=== PATIENT | male | born 1975 | race Caucasian/White ===

== ENCOUNTER 2025-02-04 23:01 | Emergency (ER) | payer OTHER, SELFPAY ==
[2025-02-04 23:05] VITALS: BP 134/81
--- NOTE | 2025-02-04 23:56 | ED.GENMED ---
History of Present Illness
General
Chief Complaint: Musculo-Skeletal Complaint
Source: patient
Exam Limitations: none
Time Seen by Provider: 02/04/25 23:31
Nursing documentation reviewed up to this point in time: agreed with
History of Present Illness
History of Present Illness:
pt is a 49 y/o M R hand dominant
here ith R hand pain (thumb) from injury 4 weeks ago
he says he wrapped a trash bag handle/string aruond the base of the thumb and lifted the bag up and felt pain in the thumb
thought it was healing but then a few days ago tweaked it and was having more pain again and he wants to get it checked out
some swelling present at the base of the R thumb
ntohing tkane for pain
denies chronic medical problems, substance abuse history noted int he chart
no wrist pain
no numbness
Past History
Past History
ED Past Medical History: None
ED Past Surgical History: None
Social History
Tobacco: Smoker
Alcohol: Daily
Drug: Other (meth)
Personal: Single
Living: with roommate
Review of Systems
Review of Systems
Allergies reviewed?: Yes
All Other Systems: Not applicable
Phy Exam
Physical Exam
Physical Exam:
GENERAL: Alert , in no apparent distress, comfortable at rest
HEAD: NCAT
CV: 2+ radial pulse
cap refill thumb intact
NEUROLOGICAL: Alert and oriented, no focal neuro deficits, , 5/5 strength, sensation intact, ambulation slight limp right leg
SKIN: Warm and dry, no bruising, no redness
MUSCULOSKELETAL: mild swelling base of the 1st metacarpal
tender to metacarpal/carpal joint
able to range the thumb
no wrist tenderness otherwise
no deformity
PSYCH: Normal and appropriate interaction.
Course
Orders/Labs/Results
Orders:
Orders
02/04/25 23:10
Finger(s)/Thumb 2 View Rt [CR Finger(s)/thumb Min 2 Vw Rt] Urgent
Comment:
Reason For Exam: pain in thumb
Indicate Which Finger:: Thumb
02/05/25 00:03
Ibuprofen [Motrin] 600 mg PO NOW STA
Vital Signs
Initial and Last Documented VS:
Initial Vital Signs
Temp Pulse Resp BP Pulse Ox
36.9 C 62 16 134/81 98
02/04/25 23:05 02/04/25 23:05 02/04/25 23:05 02/04/25 23:05 02/04/25 23:05
Last Documented Vital Signs
Temp Pulse Resp BP Pulse Ox
36.9 C 60 20 108/68 98
02/04/25 23:05 02/05/25 00:11 02/05/25 00:11 02/05/25 00:11 02/05/25 00:11
MDM/Problems Addressed
Differential Diagnosis Includes:
thumb/hand fracture, contusion
MDM/Problems Addressed:
49 y/o M
here with R thumb/hand pain x 4 weeks after saying he twisted it while he had a wrapped trashbag handle wrapped around it several times
he has had pain and swelling which he thought was getting better until yesterday
now worse again after moving it a certain way
on exam pt has tenderenss base of the 1st metacarpal
no deformity
thumb itself nontender
xray indepr eviewed noted a fx at the base of the 1st metacarpal
splinted with thumb spica
f/u ortho recommended
*Critical Care Note
Total Time (30-74mins, 75-104mins- exclusive of procedures): Not Applicable
ED Attending Note
-
Portions of this chart may have been created with voice recognition software.� Occasional wrong word or��sound alike� substitutions may have occurred due to the inherent limitations of voice recognition software.
Discharge Plan
Departure
Patient Disposition: Home (Routine Discharge)
Date of Disposition: 02/05/25
Time of Disposition: 00:02
Patient with high blood pressure during this ER visit?: No
Condition: Fair
Discharge Problem:
Fracture of metacarpal
Instructions: Hand Fracture ED
Prescriptions:
No Action
buprenorphine-naloxone [Suboxone] 8-2 mg Tablet, Sublingual
1 tab SUBLINGUAL DAILY
Referrals:
Brandon Cesar DO [Family Provider] -
Esvin Denis MD [Active] - Follow up in 5-7 days
Activity Restrictions/Additional Instructions:
You broke the base of your first metacarpal. Wear the splint until you follow-up with orthopedics. You may take ibuprofen every 8 hours for pain as needed. Ice off-and-on. Return for any concerns
Interventions
Interventions:
*Risk Screen - Suicide Last Done: 02/04/25 23:05
*General Assessment Last Done: 02/05/25 00:08
*Neglect/Abuse Screening Last Done: 02/04/25 23:05
*ED- Fall Risk Assessment Last Done: 02/04/25 23:05
*ED COVID-19 Vaccine History Last Done: 02/04/25 23:05
*Nursing Disposition Last Done: 02/05/25 00:21
ED-Musculoskeletal Assessment Last Done: 02/05/25 00:08
Discharge Date and Time
Discharge Date/Time: 02/05/25 00:24
Print Language: GERMAN
[2025-02-05] MEDS: MOTRIN 600 MG PO (00:07)
[2025-02-05 00:08] VITALS: BMI 32.6
[2025-02-05 00:11] VITALS: BP 108/68
== END 2025-02-05 00:24 | disposition home or self-care (01) ==
LOC: EMR 23:01
PROVIDERS: EMERGENCY PHYSICIAN Emergency Medicine; FAMILY PHYSICIAN Student in an Organized Health Care Education/Training Program
DX: S62.231A Other displaced fracture of base of first metacarpal bone, right hand, initial encounter for closed fracture (principal); X50.1XXA Overexertion from prolonged static or awkward postures, initial encounter; F17.200 Nicotine dependence, unspecified, uncomplicated
CPT/HCPCS: 29125; 99283; 73140; 99282

== ENCOUNTER 2025-07-26 04:49 | Day surgery (SDC) | payer OTHER, SELFPAY ==
[2025-07-25 21:26] VITALS: BP 133/80
[2025-07-25 21:41] LABS: Hematocrit 38.9 % (39.0-52.0); Hemoglobin 13.4 g/dL (13.0-18.0); Mean Corp Hgb Conc. 34.4 g/dL (33.0-37.0); Mean Corpuscular Volume 90.0 fL (80.0-94.0); Nucleated Red Blood Cells % 0 % (-); Platelet Count 225 10^3/uL (130-400); Red Cell Dist. Width 13.3 % (11.5-14.5)
[2025-07-25 22:05] LABS: ALT (SGPT) 64 U/L (0-50); AST (SGOT) 50 U/L (17-59); Albumin 4.7 g/dl (3.5-5.0); Alkaline Phosphatase 69 U/L (38-126); Blood Urea Nitrogen 15 mg/dl (9-20); Calcium 9.3 mg/dl (8.4-10.2); Carbon Dioxide 29 mmol/L (22-30); Chloride 103 mmol/L (98-107); Glucose 119 mg/dl (70-99); Lipase 95 U/L (23-300); Potassium 4.8 mmol/L (3.5-5.1); Sodium 138 mmol/L (135-145); Total Protein 7.5 g/dl (6.3-8.2); eGFR > 60.00
[2025-07-25 23:31] VITALS: BMI 31.2
[2025-07-25 23:36] VITALS: BP 147/87
[2025-07-26] VITALS (18 sets, daily range): BP systolic 99–150; BP diastolic 56–89; BMI 30.3
--- NOTE | 2025-07-26 00:35 | ED.GENMED ---
History of Present Illness
General
Chief Complaint: Abdominal Pain
Source: patient
Exam Limitations: none
Time Seen by Provider: 07/26/25 00:23
Nursing documentation reviewed up to this point in time: agreed with
History of Present Illness
History of Present Illness:
50 yr old male presents to the ER complaint of left flank pain that started prior to arrival. Patient was nauseous denies any vomiting diarrhea denies any abdominal pain or radiation to the abdomen. He has never had this pain in the past. He
denies any urinary urgency frequency dysuria. He denies injury. He denie any fever/chills/chest pain/shortness of breath.
Past History
Past History
ED Past Medical History: None
ED Past Surgical History: None
Social History
Tobacco: Smoker
Alcohol: Daily
Drug: Other (meth)
Personal: Single
Living: with roommate
Phy Exam
General Physical Exam
General Presentation: no apparent distress
General age: appears stated age
General Skin: warm and dry
General Habitus: normal
General Mental: alert
General Hydration: appears well hydrated
Gastrointestinal Exam
Gastrointestinal Exam: non tender and soft
Neurological Exam
Neurological Exam: alert and oriented x3
Musculoskeletal Exam
Musculoskeletal Exam: full ROM and other (nml inspection to left back/flank no rash )
Skin Exam
Skin Exam: normal color and warm/dry
Psychiatric Exam
Psychiatric Exam: normal mood/affect
Course
Orders/Labs/Results
Orders:
Orders
07/25/25 21:36
Complete Blood Count/With Diff Urgent
Comprehensive Metabolic Panel Urgent
Lipase Urgent
07/26/25 00:35
CT Abd/pel Without Iv Or Oral Urgent
Comment:
Reason For Exam: left flank pain
07/26/25 00:43
UA Reflex to Culture [Urinalysis Reflex To Culture] Urgent
Date Specimen was Collected: 07/26/25
Time Specimen was Collected: 00:42
Urine Microscopic Reflex Cult Urgent
Urine Culture Urgent
ANAHI Source: U
Specimen Description:
Date Specimen was Collected: 07/26/25
Time Specimen was Collected: 00:42
07/26/25 03:10
0.9% Sodium Chloride 1000 ml [Nss] 1,000 ml IV BOLUS
Ketorolac [Toradol] 15 mg IV NOW STA
07/26/25 03:14
CefTRIAXone [Rocephin] 1,000 mg IV NOW STA
07/26/25 03:16
Ondansetron Injectable [Zofran] 4 mg IV NOW STA
Abnormal Lab Results
07/25/25 07/26/25
21:36 00:43
RBC 4.32 L 10^6/uL
(4.70-6.10)
Hct 38.9 L %
(39.0-52.0)
MPV 10.7 H fL
(7.4-10.4)
Glucose 119 H mg/dl
(70-99)
ALT 64 H U/L
(0-50)
Urine Ketones 1+ A
(Negative)
Ur Occult Blood Reflex 4+ A
(Negative)
Urine Urobilinogen 2+ A
(Neg - 1+)
Leukocyte Esterase Rfl 1+ A
(Negative)
Urine RBC >100 A /HPF
(0-2)
Urine WBC (Reflex) 11-15 A /HPF
(0-5)
Urine Bacteria (Reflex) Many A
(Negative)
Urine Albumin (Reflex) 2+ A
(Neg - Trace)
07/25/25 21:36
07/25/25 21:36
Vital Signs
Initial and Last Documented VS:
Initial Vital Signs
Pulse Resp BP Pulse Ox
50 20 133/80 100
07/25/25 21:26 07/25/25 21:26 07/25/25 21:26 07/25/25 21:26
Last Documented Vital Signs
Temp Pulse Resp BP Pulse Ox
98.2 F 54 19 127/79 99
07/25/25 23:41 07/26/25 03:00 07/26/25 03:00 07/26/25 02:00 07/26/25 03:00
Maintenance Chief consulted with Physician
Maintenance Chief consulted with physician?: Yes
Name of Physician Consulted: Alirio
MDM/Problems Addressed
MDM/Problems Addressed:
Patient is a 48-year-old male with left flank pain CAT scan shows a 7 mm stone within the proximal left ureter resulting in mild left hydro. No obstruction. Patient is afebrile. He denies any urinary frequency urgency dysuria. Patient has a
history of substance abuse and is on Suboxone.
Patient with increased pain ordered Toradol and fluids. Patient did vomit once here in the ER Zofran ordered. Patient does have a UTI IV Rocephin ordered will require admission for intractable pain affected stone. Case discussed with ED physician
case discussed with urology patient mid to the hospital service.
*Radiology
Radiology exam reviewed: radiology read reviewed
*Pulse Oximetry
SaO2: 99
Oxygen Mode of Delivery: Room air
Patient hypoxic: no
*Critical Care Note
Total Time (30-74mins, 75-104mins- exclusive of procedures): Not Applicable
Patient Management
Discussion with other providers: Appellate Law Clerk ([employer] )
ED Attending Note
-
Portions of this chart may have been created with voice recognition software.� Occasional wrong word or��sound alike� substitutions may have occurred due to the inherent limitations of voice recognition software.
Discharge Plan
Departure
Patient Disposition: Admit
Date of Disposition: 07/26/25
Time of Disposition: 03:18
Admit to: Med/Surg
Admit to doctor: hospitalist
Presentation/result/management discussed w/ accepting MD/DO: Hospitalist
Patient with high blood pressure during this ER visit?: No
Condition: Fair
Covid-19: Not Applicable
Discharge Problem:
renal colic, intractable pain, Acute UTI
Prescriptions:
No Action
buprenorphine-naloxone [Suboxone] 8-2 mg Tablet, Sublingual
1 tab SUBLINGUAL DAILY
Referrals:
UNKNOWN - PT DOES,NOT KNOW [Family Provider]
Interventions
Interventions:
*Risk Screen - Suicide Last Done: 07/25/25 21:26
*General Assessment Last Done: 07/25/25 21:26
*Neglect/Abuse Screening Last Done: 07/25/25 21:26
*ED- Fall Risk Assessment Last Done: 07/25/25 21:26
*ED COVID-19 Vaccine History Last Done: 07/25/25 21:26
DD-Maclgf-Edacrvwrsc Assessment Last Done: 07/25/25 23:31
Discharge Date and Time
Print Language: ESTONIAN
[2025-07-26 00:57] LABS: Urine Character Clear (Clear)
[2025-07-26 01:39] LABS: Urine Squamous Cell 0-2 /LPF (Few)
[2025-07-26 01:41] LABS: Urine Red Blood Cell >100 /HPF (0-2)
[2025-07-26] MEDS: TORADOL 15 MG IV (03:29)
[2025-07-26] MEDS: ZOFRAN 4 MG IV (03:29)
[2025-07-26] MEDS: NSS 1000 IV ×3 (03:31→21:56)
[2025-07-26] MEDS: ROCEPHIN 1000 MG IV (03:31)
--- NOTE | 2025-07-26 04:27 | HPS.HSE ---
Family Physician
-
Family Physician: NOT KNOW UNKNOWN - PT DOES
Chief Complaint
-
Flank pain
History of Present Illness
This is a 50-year-old male with past medical history significant for substance use currently on Suboxone who presents to the emergency department with left-sided flank pain.
Acute onset just prior to coming to the emergency department. He reports severe debilitating pain with nausea but no vomiting. Denies diarrhea. Denies any prior such episode. He denies any history of kidney stones. He denies any urinary urgency
frequency dysuria. He denies injury. He denie any fever/chills/chest pain/shortness of breath.
In the emergency department he was afebrile, blood pressure of 117/80 with a pulse of 54 and he was satting 98% on room air.
UA was positive for blood leukocyte esterase and bacteria.
CBC was unremarkable. Electrolytes BUN and creatinine were all normal. WAS normal.
CT of the abdomen pelvis revealed a 7 mm proximal left ureteral stone with mild left hydro nephrosis
Medical History
Past Medical History
Past Medical History: Reports Other (substance use history )
Past Surgical History: Reports None
Social History
Tobacco: Smoker
Alcohol: Former
Drug: None
Personal: Single
Family History
Family History: Not pertinent
Allergies / Home Medications
Allergies reflects when Allergies were last updated in [facility].
Home Medications with original date entered in [facility]
Allergy/Medication List:
Allergies
Allergy/AdvReac Type Severity Reaction Status Date / Time
No Known Allergies Allergy Verified 02/04/25 23:04
Home Medications
buprenorphine 8 mg-naloxone 2 mg sublingual tablet 1 tab sublingual DAILY 02/04/25
Review of Systems
-
Constitutional: Reports No Symptoms
EENT: Reports No Symptoms
Respiratory: Reports No Symptoms
Cardiac: Reports No Symptoms
Abdomen/GI: Reports No Symptoms
: Reports Flank Pain
Musculoskeletal: Reports No Symptoms
Skin: Reports No Symptoms
Neurological: Reports No Symptoms
Endocrine: Reports No Symptoms
Hematologic/Lymphatic: Reports No Symptoms
Psych: Reports No Symptoms
Physical Exam
Vital Signs
Vital Signs
Temp Pulse Resp BP Pulse Ox
98.2 F 54 15 117/82 99
07/25/25 23:41 07/26/25 04:00 07/26/25 04:00 07/26/25 04:00 07/26/25 03:00
Physical Exam
General: Well Developed, Well Nourished and No Apparent Distress
HEENT: NormoCephalic, Moist mucous membranes and Atraumatic
Respiratory: Clear
Cardiac: S1/S2 and Regular Rhythm; No Murmur or Rub
GI: Soft, Non Tender, Non Distended and Normal Bowel Sounds; No Organomegaly
Rectal: Deferred by Provider
Musculoskeletal: No Clubbing, No Cyanosis and No Edema
Skin: No Rash
Neuro: AO x 3 and Nonfocal/grossly intact
Psych: Calm
Laboratory Results
-
07/25/25 21:36
07/25/25 21:36
Laboratory Results
Total Bilirubin 0.7 mg/dl (0.2-1.3) 07/25/25 21:36
AST 50 U/L (17-59) 07/25/25 21:36
ALT 64 U/L (0-50) H 07/25/25 21:36
Alkaline Phosphatase 69 U/L (38-126) 07/25/25 21:36
Lipase 95 U/L (23-300) 07/25/25 21:36
Data Reviewed
-
CT Scan: Report Reviewed by me
Lab Data: Labs Reviewed by me
Old Records: Reviewed
Impression/Plan
-
IMPRESSION:
50-year-old coming in with abdominal pain found to have 7 mm obstructing left ureteral stone with mild hydro. UA consistent with UTI. No signs of sepsis. Peripheral WBC 8.1. Renal function is preserved.
PLAN:
Obstructing left ureterolithiasis
-Admit to MedSurg
-N.p.o.
-IV fluid
-Pain control with IV Toradol, oral acetaminophen
- urine cultures sent, continue ceftriaxone daily for now
-Tamsulosin and strain urine
�Urology aware patient going to OR in a.m.
DVT prophylaxis�SCDs for now pending procedure
CODE STATUS�full code
--- NOTE | 2025-07-26 06:13 | EDRN ---
Patient taken to room 2126 on stretcher.
--- NOTE | 2025-07-26 07:18 | PTCARENOTE ---
pt came from ED via stretcher, able to walk into the room; VSS charted and stable; oriented to his room, currently NPO for possible OR this AM; pt had his own Suboxone and this nurse took it down to pharmacy to be verified, counted 17 films with
pharmacist; will place in Lock box when brought up. Report given to day shift about meds to be received from pharmacy.
[2025-07-26] MEDS: SUBUTEX 8 MG SL ×3 (08:40→22:00)
--- NOTE | 2025-07-26 09:31 | W.PN.URO.CBU ---
Today's Communication / Plan
-
op room
Assessment / Plan
-
7 mmlef t stone prox d=for u/l/s attemp discussed options complcations alt txs pt agrees with u/l/s consented
Diagnosis
-
Date of Service: July 26, 2025
-
Patient Diagnosis:
left prox 7 mm uretrakl stone with intracable pain
Post Op Day:
Subjective
-
pain no fever chills
Objective
-
Vital Signs
Temp Pulse Resp BP Pulse Ox
98.6 F 54 18 121/71 97
07/26/25 07:57 07/26/25 07:57 07/26/25 07:57 07/26/25 07:57 07/26/25 07:57
Laboratory Results
07/25/25 21:36
07/25/25 21:36
Review of Systems
-
: Flank Pain
Physical Exam
-
General - well developed, well nourished, no acute distress
Chest - clear bilaterally
Abdomen - soft, non-tender, positive bowel sounds, no CVAT, no incisional pain or distention
Genitalia - normal
Rectal - normal
Skin - warm & dry with no rash
Neuro - AOx3, no motor deficits
Extremities - no clubbing, no cyanosis, no edema
Incision - clean, dry
Dressing - clean, dry, intact
Care Review
Data Reviewed
Discussed with: Hospitalist
CT Scan: Image Pers Reviewed
--- NOTE | 2025-07-26 10:24 | W.PN.HOSP.TC ---
Addendum entered and electronically signed by Wilman Patricio MD 07/26/25 11:45:
Left-sided obstructing ureteral stone with associated mild hydronephrosis further complicated by likely UTI
Keep n.p.o.
IV fluids
Flomax
Strain urine
Rocephin
Urine culture follow-up
Urology
4 OR
History of substance use disorder
Continue buprenorphine 8 mg sublingual daily
Original Note:
Today's Communication/Plan
-
Going to OR today for stone removal
Assessment / Plan
Assessment / Plan
Impression
A 50-year-old male admitted with renal colic secondary to left-sided obstructive ureteral stone with mild hydronephrosis. No signs of sepsis, urine analysis consistent with a UTI.
Assessment/plan
#Left-sided obstructive ureteral stone with associated mild hydronephrosis
Keep n.p.o.
Continue IV fluids and appropriate pain management
Follow urine cultures
Continue ceftriaxone for now
Urology consult appreciated-going to OR today
#UTI secondary to ureteral obstruction
Continue ceftriaxone
Follow urine culture
#History of substance use
Continue home dose of buprenorphine 8 mg sublingual daily
Anticipated Discharge: 24 - 48 hours
Subjective/Interval History
-
Date of Service: July 26, 2025
Patient seen and examined at bedside
Lying comfortably in bed, denies any fever, chills, dysuria
Currently n.p.o., going to OR today
Objective Data
-
Vital Signs:
Vital Signs
Temp Pulse Resp BP Pulse Ox
98.6 F 54 18 121/71 97
07/26/25 07:57 07/26/25 07:57 07/26/25 07:57 07/26/25 07:57 07/26/25 07:57
Review of Systems
-
All other systems: Reviewed and negative
Physical Exam
-
General: Well Developed, No Apparent Distress and Comfortable
HEENT: Normocephalic, Atraumatic and Moist Mucous Membranes
Respiratory: Clear to Auscultation; Negative Wheezes, Rales or Rhonchi
Cardiac: Regular Rhythm and S1/S2
GI: Soft, Nontender, Nondistended and Normal Bowel Sounds
Musculoskeletal: No Clubbing, No Cyanosis and No Edema
Skin: Warm and Dry
Neuro: Awake, AO x 3 and No Motor Deficits
Psych: Calm
--- NOTE | 2025-07-26 13:05 | PTCARENOTE ---
Received patient from PACU at 1300. Patient AAOx3, no c/o pain, black stent coming from penis and attached to penis with a tegaderm. Patient aware of stent and verbalized understanding to not pull on it. Patient tolerating sips of clears, advanced
diet to regular per physician order. Call hood in reach.
--- NOTE | 2025-07-26 13:29 | CM ---
CM following re: discharge planning.
Reviewed pt's chart, met with pt.
Pt is a 50 year old male, admitted with primary dx of left prox 7 mm urethral stone with intractable pain. Went to OR for stone removal. PMH: significant for substance use currently on Suboxone.
Pt described himself as being homeless, has been homeless since October 2024, prior lived in a nursing home and when his girlfriend he took her cat and was not able to have the cat at a boarding home and chose to leave the nursing home. Pt stated
he is currently staying at [facility] on [address] for the past 6 days and his friend is paying. pt stated he will return back to his living arrangement at [facility] and he will need help with transportation. 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
Pt declined help with homeless resources stating he is aware.
PCP: Pt does not remember the name but stated his office is in [facility]
Pharmacy: [facility].
D/C plan: return back to [facility] when medically stable.
CM will follow with discharge plan updates as hospitalization progresses
[2025-07-26] MEDS: TYLENOL 650 MG PO ×2 (15:48→22:14)
[2025-07-26] MEDS: NSS IV (17:28)
[2025-07-26] MEDS: TORADOL 10 MG IV (17:34)
--- NOTE | 2025-07-26 17:48 | PTCARENOTE ---
Patient tolerating regular diet. patient voiding 300-400ml of blood tinged urine. Patient c/o 6/10 left flank pain when voiding. Toradol given.
[2025-07-27] MEDS: ROCEPHIN 1000 MG IV (01:21)
[2025-07-27] MEDS: STERILE WATER FOR INJECTION 10 ML IV (01:22)
[2025-07-27] MEDS: TORADOL 10 MG IV (04:21)
[2025-07-27 06:33] LABS: Hematocrit 33.4 % (39.0-52.0); Hemoglobin 11.5 g/dL (13.0-18.0); Mean Corp Hgb Conc. 34.4 g/dL (33.0-37.0); Mean Corpuscular Volume 92.3 fL (80.0-94.0); Nucleated Red Blood Cells % 0 % (-); Platelet Count 189 10^3/uL (130-400); Red Cell Dist. Width 13.5 % (11.5-14.5)
[2025-07-27 07:02] VITALS: BP 95/48
[2025-07-27 07:15] LABS: Blood Urea Nitrogen 19 mg/dl (9-20); Calcium 8.6 mg/dl (8.4-10.2); Carbon Dioxide 24 mmol/L (22-30); Chloride 108 mmol/L (98-107); Estimated Creatinine Clearance > 125 ml/min; Glucose 136 mg/dl (70-99); Magnesium 1.9 mg/dl (1.6-2.3); Potassium 4.8 mmol/L (3.5-5.1); Sodium 137 mmol/L (135-145); eGFR > 60.00
--- NOTE | 2025-07-27 07:23 | W.PN.HOSP.TC ---
Today's Communication/Plan
-
Discharge and follow-up with urology
Assessment / Plan
Assessment / Plan
Impression
A 50-year-old male admitted with renal colic secondary to left-sided obstructive ureteral stone with mild hydronephrosis. No signs of sepsis, urine analysis consistent with a UTI.
Assessment/plan
#Left-sided obstructive ureteral stone with associated mild hydronephrosis
S/p Left ureteroscopy, laser lithotripsy of stone, left double-J stent placement.
Tolerated the procedure well, Remained afebrile, vitally stable
On regular diet
Stop IV fluids
Urine culture showed no growth
Continue ceftriaxone for now
Urology consult appreciated-s/p left ureteroscopy laser lithotripsy of stone and left double-J stent placement-if urology is okay we can discharge the patient home today
#UTI secondary to ureteral obstruction
Continue ceftriaxone
Urine culture showed no growth
#History of substance use
Continue home dose of buprenorphine 8 mg sublingual daily
Anticipated Discharge: Today
Subjective/Interval History
-
Date of Service: July 27, 2025
Objective Data
-
Labs:
Laboratory Results
07/27/25
06:02
WBC 10.5
Hgb 11.5 L
Hct 33.4 L
Plt Count 189
Sodium 137
Potassium 4.8
Chloride 108 H
Carbon Dioxide 24
BUN 19
Creatinine 0.9
Glucose 136 H
Calcium 8.6
Vital Signs:
Vital Signs
Temp Pulse Resp BP Pulse Ox
98.9 F 56 16 95/48 98
07/27/25 07:02 07/27/25 07:02 07/27/25 07:02 07/27/25 07:02 07/27/25 07:02
I&O
09/07/27/25 07/28/25
06:59 06:59 06:59
Intake Total 1360 / 1360
Output Total 1400 / 1400
Balance -40 / -40
--- NOTE | 2025-07-27 07:37 | W.DCSUMMARY ---
Documented by User: Humza Abrams MD, Resident 07/27/25 12:59
Discharge Summary
Discharge Data
Date of Admission: 07/26/25
Date of Discharge: 07/27/25
-
Pending Results: No
Hospital Course
Discharging Physician :
Papi Love
Disposition :
Home
Primary care physician :
None
Principal Discharge diagnosis :
Left-sided obstructing ureteral stone with associated mild hydronephrosis s/p left ureteroscopy, stone lithotripsy, left double-J stent placement
UTI
Chronic Discharge diagnosis :
History of substance use
Hospital Course :
Patient is a 50-year-old male admitted with renal colic secondary to left-sided obstructive ureteral stone with mild hydronephrosis. There were no signs of sepsis, urine analysis consistent with a UTI. Patient was started empirically on
ceftriaxone. CT abdominal/pelvis done that shows obstructing 7 mm calculus at the level of ureteropelvic junction. Patient is recovering from substance use so could not be treated with narcotics. Was taken to the OR, s/p left ureteroscopy, laser
lithotripsy of stone along with left double-J stent placement by Dr. Goodman done. The patient tolerated the procedure well and was able to eat a regular diet, work with physical therapy and was stable for discharge.
PT OT recommended home discharge without any needs.
Important imaging findings :
CT abdomen/pelvis 07/26/2025
IMPRESSION:
Obstructing 7 mm calculus at the left ureteropelvic junction.
Tiny 1 mm nephrolith in the lower pole the left kidney.
Fatty infiltration of the liver.
Mild mesenteric panniculitis.
Procedure findings :
Left ureteroscopy, laser lithotripsy of stone, left double-J stent placement by Dr. Goodman.
Discharge Plan
-
Patient Disposition: Home (Routine Discharge)
Discharge Diagnosis/Procedures: Left-sided obstructing ureteral stone with associated mild hydronephrosis s/p left ureteroscopy, stone lithotripsy, left double-J stent placement
UTI
Condition: Fair
Diet: Regular
Activity: As tolerated
Driving Restrictions: As prior to admission
Bathing Restrictions: OK to Shower
Referrals:
[facility] [Outside] - in less than 1 week
Esdras Goodman MD [Active, Urology]
Referral Note: call urology dr goodman [phone] you have a stent expect frequency urgency blood in urine call dr goodman to schedule removal
UNKNOWN - PT DOES,NOT KNOW [Family Provider, Family Practice] - in less than 1 week
Prescriptions:
New
phenazopyridine 100 mg Tablet
100 mg PO TIDPRN PRN (Reason: Urine discomfort) 7 Days Qty: 20 0RF
cefdinir 300 mg capsule
300 mg PO BID 5 Days Qty: 10 0RF
Continued
buprenorphine-naloxone 8-2 mg Tablet, Sublingual
1 SUBLINGUAL 3XD
Discharge Orders:
Discharge Patient (As Directed); Ordered 07/27/25
Ordered By: Humza Abrams
Discharge Date and Time
Print Language: WELSH

Documented by User: Papi Love DO 07/27/25 13:03
Discharge Summary
Discharge Data
Date of Admission: 07/26/25
Date of Discharge: 07/27/25
Total time spent discharging patient (in min): 34
Discharge Plan
-
Patient Disposition: Home (Routine Discharge)
Discharge Diagnosis/Procedures: Left-sided obstructing ureteral stone with associated mild hydronephrosis s/p left ureteroscopy, stone lithotripsy, left double-J stent placement
UTI
Condition: Fair
Diet: Regular
Activity: As tolerated
Driving Restrictions: As prior to admission
Bathing Restrictions: OK to Shower
Referrals:
[facility] [Outside] - in less than 1 week
Esdras Goodman MD [Active, Urology]
Referral Note: call urology dr goodman [phone] you have a stent expect frequency urgency blood in urine call dr goodman to schedule removal
UNKNOWN - PT DOES,NOT KNOW [Family Provider, Family Practice] - in less than 1 week
Prescriptions:
New
phenazopyridine 100 mg Tablet
100 mg PO TIDPRN PRN (Reason: Urine discomfort) 7 Days Qty: 20 0RF
cefdinir 300 mg capsule
300 mg PO BID 5 Days Qty: 10 0RF
Continued
buprenorphine-naloxone 8-2 mg Tablet, Sublingual
1 SUBLINGUAL 3XD
Discharge Orders:
Discharge Patient (As Directed); Ordered 07/27/25
Ordered By: Humza Abrams
Discharge Date and Time
Print Language: WELSH
[2025-07-27] MEDS: SUBUTEX 8 MG SL ×2 (08:01→15:24)
--- NOTE | 2025-07-27 09:12 | W.PN.URO.CBU ---
Today's Communication / Plan
-
ready for d.o
Assessment / Plan
-
7 mmlef t stone lasered ready for d/c stent iut in office
Diagnosis
-
Date of Service: July 27, 2025
-
Patient Diagnosis:
Post Op Day:
Patient Diagnosis:
left prox 7 mm uretrakl stone with intracable pain
Post Op Day: 1
Subjective
-
stent pain
Objective
-
Vital Signs
Temp Pulse Resp BP Pulse Ox
98.9 F 56 16 95/48 98
07/27/25 07:02 07/27/25 07:02 07/27/25 07:02 07/27/25 07:02 07/27/25 07:02
Intake and Output
07/26/25 07/27/25 07/28/25
06:59 06:59 06:59
Intake Total 1360 / 1360
Output Total 1400 / 1400
Balance -40 / -40
Intake:
Oral fluids 760 / 760
IV fluids (Total) 600 / 600
Normosol 100 / 100
Output:
Urine, Voided 1400 / 1400
Other:
Number of approximated MODERATE 2
amounts of urine
Number of approximated LARGE 2
amounts of urine
Laboratory Results
07/27/25 06:02
07/27/25 06:02
Review of Systems
-
: Frequency and Urgency
Physical Exam
-
General - well developed, well nourished, no acute distress
Chest - clear bilaterally
Abdomen - soft, non-tender, positive bowel sounds, no CVAT, no incisional pain or distention
Genitalia - normal
Rectal - normal
Skin - warm & dry with no rash
Neuro - AOx3, no motor deficits
Extremities - no clubbing, no cyanosis, no edema
Incision - clean, dry
Dressing - clean, dry, intact
[2025-07-27 09:38] VITALS: BP 116/71; PULSE 50; O2SAT 98
[2025-07-27 10:00] VITALS: BP 116/71
--- NOTE | 2025-07-27 12:57 | CM ---
Addendum entered by Jarrell Sterling 07/27/25 15:34:
Pt stated his friend cannot pick him up and he asked to give him a ride to his [place] [facility] at [address] [facility] [address].
Lyft scheduled for 4:00 p.m. 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
Original Note:
CM following re: discharge planning.
Reviewed pt' chart, met with pt.
Pt is POD#1 S/p Left ureteroscopy, laser lithotripsy of stone, left double-J stent placement.
Discharge order noted. Pt is aware and he stated his friend will provide transport if he is able or he will walk to the bank.
No after care VN needs identified. Pt will follow-up with urology
D/c plan: home no needs.
[2025-07-27 15:07] VITALS: BP 128/74
== END 2025-07-27 15:34 | disposition home or self-care (01) ==
LOC: SDS 04:49
PROVIDERS: Emergency Medicine; Internal Medicine; Nurse Practitioner; ATTENDING PHYSICIAN Internal Medicine; CONSULT PHYSICIAN Specialist; EMERGENCY PHYSICIAN Student in an Organized Health Care Education/Training Program
DX: N20.1 Calculus of ureter (principal); F19.11 Other psychoactive substance abuse, in remission
CPT/HCPCS: 52356; 74018; 74176; 76000; 80048; 80053; 81003; 81015; 83690; 83735; 85025; 87070; 87086; 96361; 96374; 96375; 97161; 97165; 99285; 99406; C1894; C2617